=== PATIENT | male | born 1945 | race Caucasian/White ===

== ENCOUNTER 2016-04-03 07:58 | Day surgery (SDC) | payer OTHER ==
--- NOTE | 2016-04-02 22:10 | HP ---
MICHAEL DAMON [id number] HISTORY OF PRESENT ILLNESS: Michael is a 71-year-old who presented to the clinic with complaints of painful great toe on the right hallux. He says this has been bothering him off and on for the past several months, getting progressively worse. We did a chemical matrixectomy in the office a few months back. He says that made part of the pain go away, but he continues to have pain on the inside part of the toe and on the distal aspect of the toe with any type of pressure in his shoes. PAST MEDICAL HISTORY: Significant for: 1. Hypertension. 2. Heart disease. 3. COPD. ALLERGIES: No known drug allergies. CURRENT MEDICATIONS: He takes: 1. Lisinopril. 2. Metoprolol. 3. Baby aspirin. 4. Ibuprofen. 5. Symbicort. FAMILY HISTORY: Noncontributory. SOCIAL HISTORY: Denies any tobacco or alcohol use. PHYSICAL EXAMINATION: VITAL SIGNS: Blood pressure 142/72. Pulse of 75 and regular. HEENT: Head is normocephalic. No scars or masses noted. External exam of the ears and eyes is negative. Throat shows no masses or inflammation. NECK: Shows no lymphadenopathy. LUNGS: Clear to auscultation in all luna. HEART: Regular rate and rhythm. No murmurs or gallops noted. ABDOMEN: Soft, nontender and nondistended. LOWER EXTREMITIES: Pedal pulses are intact. Filling time of two seconds. Color of skin is pink. NEUROLOGICAL: Gross sensation intact. DERMATOLOGIC: Temperature, texture and turgor are within normal limits. There is positive hair growth at the digits. MUSCULOSKELETAL: Patient has pain on the end of the right great toe and on the medial side of the toe with compression of the toe. IMAGING: X-rays of the foot show a bone spur on the distal aspect of the distal phalanx and on the medial aspect of the base of the distal phalanx. PLAN: We are going to schedule him for an exostectomy of both these bone spurs. This will be done under MAC sedation with a local block. All risks and complications inherent to the procedure are gone over with the patient and he understands these. There are no contraindications in his medical history. He will be followed at [facility] on 04/03/2016.
[2016-04-03] MEDS ORDERED: CEFAZOLIN SODIUM 2 GRAM PREMIX 100 ML IV ONE (08:26)
[2016-04-03] MEDS ORDERED: LACTATED RINGERS 1,000 ML ONE (08:26)
[2016-04-03] MEDS ORDERED: IV START KIT ONE (08:26)
[2016-04-03 08:45] LABS: HEMATOCRIT 46.5 % (32.0-52.0); HEMOGLOBIN 15.8 gm/l (14.0-18.0)
[2016-04-03] MEDS ORDERED: CEFAZOLIN SODIUM 2 GRAM PREMIX 100 ML IV PRN (08:45)
[2016-04-03] MEDS ORDERED: MIDAZOLAM HCL 1 MG/ML 2ML VIAL ONE (11:45)
[2016-04-03] MEDS ORDERED: BUPIVACAINE 0.5% (PRES FREE) 30 ML VIAL ONE (11:50)
[2016-04-03] MEDS ORDERED: LIDOCAINE 1% (PRES FREE) 30 ML VIAL ONE (11:50)
[2016-04-03] MEDS ORDERED: ONDANSETRON 4 MG/2ML 2 ML VIAL IV PRN (12:21)
[2016-04-03] MEDS ORDERED: PROMETHAZINE HCL 25 MG/ML VIAL IM PRN (12:21)
[2016-04-03] MEDS ORDERED: NALOXONE HCL 0.4 MG/ML VIAL IV PRN (12:21)
[2016-04-03] MEDS ORDERED: ATROPINE SULFATE 0.4 MG/1 ML VIAL IV PRN (12:21)
[2016-04-03] MEDS ORDERED: FENTANYL 100 MCG/2 ML VIAL IV PRN (12:21)
[2016-04-03] MEDS ORDERED: LIDOCAINE 2% (PRES FREE) 5 ML VIAL ONE (12:23)
[2016-04-03] MEDS ORDERED: PROPOFOL 40 ML IV ONE (12:23)
[2016-04-03] MEDS ORDERED: LACTATED RINGERS 1,000 ML IV SCH (12:30)
[2016-04-03] MEDS ORDERED: OXYCODONE HCL 5 MG TABLET PO PRN (12:44)
[2016-04-03] MEDS ORDERED: OXYCODONE HCL 5 MG TABLET ONE (13:28)
--- NOTE | 2016-04-06 11:09 | OP ---
MARKO DAMON DATE OF PROCEDURE: April 03, 2016 SURGEON: Primo Wasserman D.P.M. PREOPERATIVE DIAGNOSIS: Painful bone spur on the distal and medial side of the right hallux. POSTOPERATIVE DIAGNOSIS: Painful bone spur on the distal and medial side of the right hallux. PROCEDURE: EXOSTECTOMY OF THE TWO BONE SPURS ON THE RIGHT HALLUX. ANESTHESIA: MAC (monitored anesthesia care) sedation with a local anesthetic block to the right hallux using 10 mL of 1% lidocaine, 0.5 Marcaine in a 1:1 mix. HEMOSTASIS: Ankle tourniquet inflated to 250 mmHg for a total of 22 minutes, right ankle. ESTIMATED BLOOD LOSS: Less than 10 mL. MATERIALS: 1. #3-0 Vicryl. 2. #3-0 Prolene. DETAILS OF THE PROCEDURE: The patient was brought into the operating room and laid on the operating room table in the supine position. After he was adequately sedated, we anesthetized the foot with above said anesthetic block. We prepped and draped the foot in the standard sterile fashion. Using an Esmarch, we exsanguinated blood from the right foot and inflated the ankle tourniquet. At this time, attention was drawn to the dorsum of the right hallux where using a freer we lifted the proximal nail fold off the nail bed, placed this underneath the hallux nail and removed the hallux nail in total. A longitudinal incision was made then made down the midline of the toe from just proximal to the proximal nail fold all the way into the toe. This incision was deepened through the dermis down to the bone using sharp dissection. We freed the deep tissues off the periosteum until we had adequate exposure to the bony prominence on the end of the distal phalanx. Once we had adequate visualization of the bone, we used a sagittal saw and removed the distal third of the head of the distal phalanx. Using a bone zuleima, we burred the edges off smoothly. This bone was sent to pathology for gross and micro examination. We irrigated the tissues with saline and reapproximated the tissues back together with #3-0 Prolene in simple interrupted fashion. A second incision was made on the medial side of the hallux at the interphalangeal joint midline between the dorsal and plantar surfaces. This incision was deepened through the epidermis and dermis. All superficial vessels were Bovie cauterized. Using sharp dissection, we deepened through the subcutaneous tissue down to the joint capsule and periosteum at the interphalangeal joint. Using sharp dissection we performed a medial capsulotomy and reflected the capsular tissue off of the base of the distal phalanx until we had adequate visualization of the bone spur here. Using a bone zuleima, we burred the bone spur off smooth and round. We irrigated the tissue with saline and reapproximated the capsule back together with #3-0 Vicryl in running fashion. We closed the superficial structures in the same manner, closed the skin with #3-0 Prolene in horizontal mattress fashion. Both wounds were dressed with Xeroform gauze and dry sterile dressings. The tourniquet was let down. There was normal perfusion noted to the foot. Patient tolerated the procedure well and left the operating room to recovery room with vital signs stable in no apparent distress. Followup in my office times 72 hours for postoperative check. cc: Primo Wasserman D.P.M.
--- NOTE | 2016-04-08 10:47 | SURGPATH ---
[facility] [address] [place] [id number] Patient Name: MARKO DAMON MR#: [id number] : 1945 Gender: M Specimen #: [id number] Collected: 04/03/2016 Received: 04/06/2016 Reported: 04/08/2016 Submitting Phys: TRELL DE LA CRUZ Copy To Phys: [facility] Clinical History / Pre-Operative Diagnosis: BONE SPUR Specimen Source / Surgical Procedure Performed: RIGHT HALLUX Interpretation: BONE SPUR, RIGHT HALLUX, RESECTION: - FRAGMENT OF UNREMARKABLE BONE CONSISTENT WITH SPUR Electronically Signed Out Baldo Selby M.D. Gross Description: The specimen is received in a formalin filled container labeled with the patient's name and "bone spur, right hallux". An irregular damon-muñiz bone fragment is 1.0 x 0.7 x 0.5 cm. The specimen is sharply sawed through yellow fatty cancellous bone. No microscopic examination will be performed losses are requested. Duke Erwin, P.A. 1: [id number]
== END 2016-04-03 14:00 | disposition home or self-care (01) ==
LOC: SDC 07:58
PROVIDERS: ATTEND Podiatrist
PROC: 0QBQ0ZZ Excision of Right Toe Phalanx, Open Approach (ICD-10-PCS; principal; 2016-04-03)
DX: M20.21 Hallux rigidus, right foot (principal); I10 Essential (primary) hypertension; J44.9 Chronic obstructive pulmonary disease, unspecified; I51.9 Heart disease, unspecified; Z79.82 Long term (current) use of aspirin

== ENCOUNTER 2016-05-25 10:26 | Day surgery (SDC) | payer OTHER ==
[2016-05-25] MEDS ORDERED: LACTATED RINGERS 1,000 ML ONE (10:35)
[2016-05-25] MEDS ORDERED: IV START KIT ONE (10:35)
[2016-05-25] MEDS ORDERED: CEFAZOLIN SODIUM 2 GRAM PREMIX 100 ML IV PRN (11:00)
[2016-05-25] MEDS ORDERED: CEFAZOLIN SODIUM 2 GRAM PREMIX 100 ML IV ONE (11:18)
[2016-05-25] MEDS ORDERED: OPIUM/BELLADONNA ALKALOIDS 1 EACH SUP PR ONE (13:03)
[2016-05-25] MEDS ORDERED: PROPOFOL 40 ML IV ONE (14:24)
[2016-05-25] MEDS ORDERED: MIDAZOLAM HCL 1 MG/ML 2ML VIAL ONE ×2 (14:24→14:36)
[2016-05-25] MEDS ORDERED: SPINAL PROCEDURAL TRAY 1 EACH ONE (14:26)
[2016-05-25] MEDS ORDERED: BUPIVACAINE 0.75% SPINAL AMPUL 2 ML ONE (14:26)
[2016-05-25] MEDS ORDERED: FENTANYL 100 MCG/2 ML VIAL ONE (14:48)
[2016-05-25] MEDS ORDERED: KETAMINE HCL UD SYRINGE 100 MG/2 ML IV ONE (14:52)
[2016-05-25] MEDS ORDERED: PROMETHAZINE HCL 25 MG/ML VIAL IM PRN (15:20)
[2016-05-25] MEDS ORDERED: ONDANSETRON 4 MG/2ML 2 ML VIAL IV PRN ×2 (15:20→16:16)
[2016-05-25] MEDS ORDERED: FENTANYL 100 MCG/2 ML VIAL IV PRN (15:20)
[2016-05-25] MEDS ORDERED: MORPHINE SULFATE 4 MG/ML SYRINGE IV PRN ×2 (15:20→16:21)
[2016-05-25] MEDS ORDERED: LACTATED RINGERS 1,000 ML IV SCH (15:30)
--- NOTE | 2016-05-25 15:48 | RAD ---
RETROGRADE UROGRAM HISTORY: Bilateral retrograde urogram COMPARISONS: None FINDINGS: 9 overhead fluoroscopic images are provided for review. Initial retrograde cannulization and opacification of the left collecting system is performed. This is followed by retrograde cannulization and opacification of the right collecting system. No definite filling defect is identified bilaterally. Fluoroscopy time: 55.8 seconds IMPRESSION: Intraoperative fluoroscopy as above. Please see urologist note regarding the procedure for further details.
[2016-05-25] MEDS ORDERED: MORPHINE SULFATE 10 MG/ML SYRINGE IV PRN (16:21)
[2016-05-25] MEDS ORDERED: PHENAZOPYRIDINE HCL 200 MG TABLET ONE (16:51)
[2016-05-25] MEDS ORDERED: MORPHINE SULFATE 2 MG/ML SYRINGE ONE (16:52)
[2016-05-25] MEDS ORDERED: OXYCODONE HCL 5 MG TABLET ONE (16:53)
[2016-05-25] MEDS: MORPHINE SULFATE 2 MG/ML SYRINGE IV PRN (16:58)
[2016-05-25] MEDS: OXYCODONE HCL 5 MG TABLET PO PRN (17:01)
[2016-05-25] MEDS: PHENAZOPYRIDINE HCL 200 MG TABLET PO SCH (17:01)
--- NOTE | 2016-05-25 17:40 | OP ---
MARKO DAMON [id number] DATE OF OPERATION: May 25, 2016 SURGEON: Kartik Heart M.D. MEDICAL RECEPTIONIST ASSISTANT: None. ANESTHESIA: General. PREOPERATIVE DIAGNOSIS: Recurrent bladder carcinoma. POSTOPERATIVE DIAGNOSIS: Recurrent bladder carcinoma. PROCEDURE: 1. CYSTOSCOPY. 2. BILATERAL RETROGRADE URETEROGRAPHY. 3. TRANSURETHRAL RESECTION OF BLADDER TUMOR. SPECIMENS: Sample of bladder tumor from affected field. 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 He apparently was lost to followup and [facility] at which time cystoscopy showed a "carpet of tumor" involving the left anterolateral wall. He returns for exam under anesthesia and resection. FINDINGS: The urethra is notable for a wide caliber stricture involving the bulbous urethra just external to the membranous urethra. Prostatic fossa is practically 3.5 cm in length and there is some prostatic enlargement and bladder neck elevation. Bladder wall is mildly trabeculated. Ureteral orifices are normally disposed. Retrograde studies of the ureters were normal. The old tumor field was evidence on the low lateral wall of the bladder projecting somewhat anteriorly. Essentially in the scar field there was a wide area of papillary urothelial change consistent with the reported [facility] the [facility]. PROCEDURE: The patient was identified and brought to the operating room where general anesthesia was induced, and he was placed in a dorsal lithotomy position. The genital region was prepared and draped sterilely. A 21 Frisian rigid cystoscope was introduced with saline as an irrigant. Findings are reported above. A cone tip catheter was used to inject contrast into each ureter and dental sales representative images were obtained fluoroscopically. Finding no significant worrisome lesions in the ureters, the bladder was examined and the tumor found on the low left wall. We switched the cystoscope out for a resectoscope with a bipolar cautery system using a small loop and saline as an irrigant. The tumor proved to be overlying the region that would stimulate the obturator nerve using the cutting current and cause reflex activity in the lower extremity. Therefore, after obtaining a small sample of the affected area, we switched to fulguration mode and completed the destruction of the tumor and surrounding rim using cautery only. Once this was complete, we removed the resectoscope and passed a 20 Frisian Sky catheter to gravity drainage with 10 mL of water in its balloon. Temporary three-way saline irrigation was instituted to check for hematuria. Estimated blood loss less than 20 mL. No early complications. Patient tolerated the procedure well and was taken in stable condition to the post anesthesia room. cc: Kartik Heart M.D. Sri Melendez N.P.
--- NOTE | 2016-05-28 14:30 | SURGPATH ---
[facility] [address] [place] [id number] Patient Name: MARKO DAMON MR#: [id number] : 1945 Gender: M Specimen #: [id number] Collected: 05/25/2016 Received: 05/27/2016 Reported: 05/28/2016 Submitting Phys: MIKAYLA PERRY [facility] Clinical History / Pre-Operative Diagnosis: Previous bladder tumor Specimen Source / Surgical Procedure Performed: Left wall bladder tumor Interpretation: BLADDER, LOWER LEFT WALL, BIOPSY: - BLADDER WALL PARTIALLY DENUDED UROTHELIUM SHOWING MILD CHRONIC INFLAMMATION AND REACTIVE EPITHELIAL ATYPIA. - NO DEFINITE EVIDENCE OF MALIGNANCY. Comment: The slide has been reviewed at the pathology intradepartmental conference and the pathologists present agree with the diagnosis. Electronically Signed Out Brad Gonzáles M.D., Ph.D. Gross Description: The specimen is received in a formalin filled container labeled with the patient's name and "low left wall bladder tumor". A damon-muñiz biopsy is 0.4 x 0.2 x 0.2 cm. Totally embedded in one cassette. Duke Erwin PJudyAJudy Microscopic Description: Examination of multiple levels from the low left wall bladder biopsy shows a single piece of bladder wall partially denuded of urothelium with a mild chronic inflammatory cell infiltrate and reactive epithelial atypia. There is no definite evidence of malignancy. 1: [id number] N30.20
== END 2016-05-25 18:42 | disposition home or self-care (01) ==
LOC: SDC 10:26
PROVIDERS: ATTEND Urology
PROC: 0T5B8ZZ Destruction of Bladder, Via Natural or Artificial Opening Endoscopic (ICD-10-PCS; principal; 2016-05-25)
DX: C67.2 Malignant neoplasm of lateral wall of bladder (principal); I10 Essential (primary) hypertension; Z88.8 Allergy status to other drugs, medicaments and biological substances; Z88.5 Allergy status to narcotic agent; J44.9 Chronic obstructive pulmonary disease, unspecified; I25.2 Old myocardial infarction; E66.9 Obesity, unspecified; Z95.1 Presence of aortocoronary bypass graft; Z87.891 Personal history of nicotine dependence
CPT/HCPCS: 74420; 52234; J3010; J2270; A9270 ×3; J2250 ×2; J2405; J7120; J0690